=== PATIENT | female | born 1965 | race Two or more races ===

== ENCOUNTER 2017-10-10 11:19 | Emergency (ER) | payer OTHER ==
[2017-10-10 11:22] VITALS: BP 140/79; PULSE 81; TEMP 97; BMI 26.5
--- NOTE | 2017-10-10 12:20 | PDOC ---
History of Present Illness - General Chief Complaint: Pain Stated Complaint: FINGER INJURY Time Seen by Provider: 10/10/17 12:11 History Source: Patient, Stone Splitter Used (#[id number]) Exam Limitations: Clinical Condition - History of Present Illness Initial Comments: 10/10/17 12:23 Patient with history of diabetes on metformin present with complain of right thumb pain status post cleaning a bath tub 2 weeks ago pushing down right thumb. Patient reports she did not take anything for pain Timing/Duration: other (2 weeks) Past History - Past Medical History Allergies/Adverse Reactions: Allergies Allergy/AdvReac Type Severity Reaction Status Date / Time No Known Allergies Allergy Verified 10/10/17 11:23 Home Medications: Ambulatory Orders Ibuprofen 800 mg PO Q8H PRN #20 tablet 10/10/17 COPD: No Diabetes: Yes - Suicide/Smoking/Psychosocial Hx Smoking History: Never smoked Review of Systems - Review of Systems Able to Perform ROS?: Yes Is the patient limited Frisian proficient: No Constitutional: No: Chills, Diaphoresis, Fever, Loss of Appetite, Malaise, Night Sweats, Weakness, Weight Stable, Unintentional Wgt. Loss, Unexplained wgt Loss, Other HEENTM: No: Eye Pain, Blurred Vision, Tearing, Recent change in vision, Double Vision, Cataracts, Ear Pain, Ocular Prothesis, Ear Discharge, Nose Pain, Nose Congestion, Tinnitus, Nose Bleeding, Hearing Loss, Throat Pain, Throat Swelling , Mouth Pain, Dental Problems, Difficulty Swallowing, Mouth Swelling, Other Respiratory: No: Cough, Orthopnea, Shortness of Breath, SOB with Exertion, SOB at Rest, Stridor, Wheezing, Productive cough, Hemoptysis, Other Cardiac (ROS): No: Chest Pain, Edema, Irregular Heart Rate, Lightheadedness, Palpitations, Syncope, Chest Tightness, Other ABD/GI: No: Abdominal Distended, Abd. Pain w/ defecation, Blood Streaked Bowels , Constipated, Diarrhea, Difficulty Swallowing, Nausea, Poor Appetite, Poor Fluid Intake, Rectal Bleeding, Vomiting, Indigestion, Abdominal cramping, Tarry Stools, Other Musculoskeletal: Yes: See HPI, Joint Pain (right thumb), Muscle Pain (right thumb). No: Muscle Weakness All Other Systems: Reviewed and Negative *Physical Exam - Vital Signs Last Vital Signs Temp Pulse Resp BP Pulse Ox 97 F L 81 18 140/79 100 10/10/17 11:20 10/10/17 11:20 10/10/17 11:20 10/10/17 11:20 10/10/17 11:20 - Physical Exam Comments: 10/10/17 12:25 GENERAL: Well developed, well nourished. Awake and alert. No acute distress. HEENT: Normocephalic, atraumatic. PERRLA, EOMI. No conjunctival pallor. Sclera are non- icteric. Moist mucous membranes. Oropharynx is clear. NECK: Supple. Full ROM. No JVD. Carotid pulses 2+ and symmetric, without bruits. No thyromegaly. No lymphadenopathy. CARDIOVASCULAR: Regular rate and rhythm. No murmurs, rubs, or gallops. Distal pulses are 2+ and symmetric. PULMONARY: No evidence of respiratory distress. Lungs clear to auscultation bilaterally. No wheezing, rales or rhonchi. ABDOMINAL: Soft. Non-tender. Non-distended. No rebound or guarding. No organomegaly. Normoactive bowel sounds. MUSCULOSKELETAL : Moderate tenderness to base of left thumb. Mild tenderness to proximal and distal phalangeal left thumb.5/5 muscle strength of left thumb and wrist Normal range of motion at all joints. No bony deformities or tenderness. No CVA tenderness. EXTREMITIES: No cyanosis. No clubbing. No edema. No calf tenderness. SKIN: Warm and dry. Normal capillary refill. No rashes. No jaundice. NEUROLOGICAL: Alert, awake, appropriate. Cranial nerves 2-12 intact. No deficits to light touch and temperature in face, upper extremities and lower extremities. No motor deficits in the in face, upper extremities and lower extremities. Normoreflexic in the upper and lower extremities. Normal speech. Toes are down- going bilaterally. Gait is normal without ataxia. PSYCHIATRIC: Cooperative. Good eye contact. Appropriate mood and affect. General Appearance: Yes: Nourished, Appropriately Dressed. No: Apparent Distress Medical Decision Making - Medical Decision Making 10/10/17 12:27 Patient with no significant past medical history present with complain of 2 weeks history of persistent right thumb pain status post housecleaning 2 weeks ago. Patient did not take anything for pain. Exams significant for moderate tenderness to base of left thumb with mild tenderness to falling just of left thumb. X-ray of hand and wrist ordered to rule out acute pathology. Symptoms likely thumb strain. Motrin 800 mg by mouth for pain. Treat based on imaging results 10/10/17 12:53 x-rays shows no acute fracture. patient stable for home discharge on NSAID and thumb brace with orthopedics follow-up *DC/Admit/Observation/Transfer Diagnosis at time of Disposition: Thumb sprain Qualifiers: Encounter type: initial encounter Sprain of finger site: metacarpophalangeal joint Laterality: right Qualified Code(s): S63.641A - Sprain of metacarpophalangeal joint of right thumb, initial encounter - Discharge Dispostion Disposition: HOME Condition at time of disposition: Stable Decision to Admit order: No - Prescriptions Prescriptions: Ibuprofen 800 mg PO Q8H PRN #20 tablet PRN Reason: thumb pain - Referrals Referrals: Edward Archuleta [Primary Care Provider] - Andres Lovell MD [Staff Physician] - - Patient Instructions Printed Discharge Instructions: Ulnar Collateral Ligament Sprain of Thumb Additional Instructions: Take medication as prescribed for pain. Keep thumb splints on until symptoms resolve. Follow up with preferred orthopedics if symptoms persist for more than 5 days - Post Discharge Activity
[2017-10-10] MEDS ORDERED: IBUPROFEN 400 MG TABLET (FP) PO ONE ×2 (12:28→12:32)
== END 2017-10-10 13:13 | disposition home or self-care (01) ==
LOC: JERFT 11:19
PROC: 2W3GX1Z Immobilization of Right Thumb using Splint (ICD-10-PCS; principal; 2017-10-10)
DX: S63.641A Sprain of metacarpophalangeal joint of right thumb, initial encounter (principal); X50.9XXA Other and unspecified overexertion or strenuous movements or postures, initial encounter; Y93.E9 Activity, other interior property and clothing maintenance; Y92.031 Bathroom in apartment as the place of occurrence of the external cause; Y99.8 Other external cause status
CPT/HCPCS: 73110-TC-RT-FY; 73130-TC-RT-FY; 99281-25

== ENCOUNTER 2021-10-22 19:55 | Inpatient (IN) | payer OTHER ==
[2021-10-22 20:04] VITALS: BMI 27.2
[2021-10-22 22:36] LABS: BASO % 0.9 % (0-2.0); EOS % 1.3 % (0-4.5); HEMATOCRIT 42.1 % (32.4-45.2); HEMOGLOBIN 14.4 GM/dL (10.7-15.3); LYMPH % 45.7 % (8-40); MCH 31.5 pg (25.7-33.7); MCHC 34.2 g/dl (32.0-36.0); MEAN PLT VOLUME 7.5 fl (7.5-11.1); MONO % 7.6 % (3.8-10.2); NEUT % 44.5 % (42.8-82.8); PLATELET COUNT 299 10^3/uL (134-434); RBC 4.58 M/mm3 (3.60-5.2); RDW 12.8 % (11.6-15.6); WHITE BLOOD COUNT 6.9 K/mm3 (4.0-10.0)
[2021-10-22 22:47] LABS: CALCIUM 9.3 mg/dL (8.5-10.1)
[2021-10-22 22:49] LABS: ALBUMIN 3.8 g/dl (3.4-5.0); BLOOD UREA NITROGEN 12.7 mg/dL (7-18)
[2021-10-22 22:51] LABS: CREATININE 0.8 mg/dL (0.55-1.3)
[2021-10-22 22:52] LABS: TOT PROT 8.8 g/dl (6.4-8.2)
[2021-10-22 22:54] LABS: BILIRUBIN,TOTAL 0.4 mg/dL (0.2-1)
[2021-10-23] MEDS ORDERED: CLINDAMYCIN 600MG PREMIX IVPB 600 MG/50 ML BAG IVPB ONE ×4 (02:05→17:47)
[2021-10-23 07:14] LABS: HEMATOCRIT 40.1 % (32.4-45.2); HEMOGLOBIN 14.2 GM/dL (10.7-15.3); MCH 32.4 pg (25.7-33.7); MCHC 35.4 g/dl (32.0-36.0); MEAN CELL VOLUME 91.6 fl (80-96); MEAN PLT VOLUME 7.6 fl (7.5-11.1); PLATELET COUNT 284 10^3/uL (134-434); RBC 4.38 M/mm3 (3.60-5.2); WHITE BLOOD COUNT 6.2 K/mm3 (4.0-10.0)
[2021-10-23 07:32] LABS: CALCIUM 9.3 mg/dL (8.5-10.1)
[2021-10-23 07:33] LABS: ALBUMIN 3.6 g/dl (3.4-5.0); BLOOD UREA NITROGEN 12.3 mg/dL (7-18)
[2021-10-23 07:36] LABS: CREATININE 0.7 mg/dL (0.55-1.3)
[2021-10-23 07:38] LABS: BILIRUBIN,TOTAL 0.5 mg/dL (0.2-1); TOT PROT 8.5 g/dl (6.4-8.2)
[2021-10-23] MEDS: INSULIN SLIDING SCALE (NOVOLOG) 1 VIAL SQ SCH ×4 (08:33→22:09)
[2021-10-23] MEDS ORDERED: MONTELUKAST NA 10 MG TABLET ONE (10:06)
[2021-10-23] MEDS: MONTELUKAST NA 10 MG TABLET PO SCH (10:11)
[2021-10-23] MEDS: CLINDAMYCIN 600MG PREMIX IVPB 600 MG/50 ML BAG IVPB SCH ×2 (10:11→18:08)
[2021-10-23] MEDS: INSULIN (LEVEMIR) 100 UNITS/ML UNITS SQ SCH ×2 (10:15→22:09)
[2021-10-23] MEDS ORDERED: ACETAMINOPHEN 1000 MG/100 ML BAG IVPB ONE (20:50)
[2021-10-23] MEDS ORDERED: ACETAMINOPHEN INJECTION 100 ML IVPB ONE (21:13)
[2021-10-23] MEDS ORDERED: ATORVASTATIN CA 20 MG TABLET (FP) PO SCH (22:00)
[2021-10-23] MEDS ORDERED: ATORVASTATIN CA 20 MG TABLET (FP) ONE (22:04)
[2021-10-24] MEDS ORDERED: CLINDAMYCIN 600MG PREMIX IVPB 600 MG/50 ML BAG IVPB ONE ×2 (03:23→11:47)
[2021-10-24] MEDS: CLINDAMYCIN 600MG PREMIX IVPB 600 MG/50 ML BAG IVPB SCH (03:28)
[2021-10-24] MEDS: INSULIN SLIDING SCALE (NOVOLOG) 1 VIAL SQ SCH ×4 (08:01→21:43)
[2021-10-24] MEDS ORDERED: ONDANSETRON 4 MG/2 ML VIAL IVPUSH PRN ×3 (10:15→14:12)
[2021-10-24] MEDS ORDERED: MIDAZOLAM HCL 2 MG/2 ML SINGLE DOSE VIAL ONE (10:29)
[2021-10-24] MEDS ORDERED: BUPIVACAINE HCL/PF 0.25% (2.5MG/ML) 10 ML VIAL ONE (10:39)
[2021-10-24] MEDS ORDERED: BUPIVACAINE HCL/PF 0.25% (2.5MG/ML) 10 ML VIAL IJ ONE ×2 (10:44)
[2021-10-24] MEDS ORDERED: BUPIVACAINE HCL/PF 0.5% (5MG/ML) 10 ML VIAL IJ ONE (10:44)
[2021-10-24] MEDS ORDERED: CLINDAMYCIN 600 MG PREMIX BAG IVPB ONE (11:49)
[2021-10-24] MEDS ORDERED: SODIUM CHLORIDE 1,000 ML IV SCH (12:30)
[2021-10-24] MEDS ORDERED: ACETAMINOPHEN 500 MG TABLET (FP) PO SCH (14:00)
[2021-10-24] MEDS: ATORVASTATIN CA 20 MG TABLET (FP) PO SCH (21:40)
[2021-10-24] MEDS: INSULIN (LEVEMIR) 100 UNITS/ML UNITS SQ SCH (21:42)
[2021-10-24] MEDS: ACETAMINOPHEN 1000 MG/100 ML BAG IVPB PRN (21:44)
[2021-10-25] MEDS: CLINDAMYCIN 600MG PREMIX IVPB 600 MG/50 ML BAG IVPB SCH ×4 (01:19→17:58)
[2021-10-25] MEDS: INSULIN SLIDING SCALE (NOVOLOG) 1 VIAL SQ SCH ×4 (06:16→21:52)
[2021-10-25] MEDS: INSULIN (LEVEMIR) 100 UNITS/ML UNITS SQ SCH ×3 (06:16→21:52)
[2021-10-25] MEDS: MONTELUKAST NA 10 MG TABLET PO SCH ×2 (07:40→10:20)
[2021-10-25 09:05] LABS: BASO % 0.4 % (0-2.0); EOS % 2.1 % (0-4.5); HEMATOCRIT 37.4 % (32.4-45.2); HEMOGLOBIN 13.1 GM/dL (10.7-15.3); LYMPH % 33.9 % (8-40); MCHC 35.1 g/dl (32.0-36.0); MEAN CELL VOLUME 91.2 fl (80-96); MEAN PLT VOLUME 7.6 fl (7.5-11.1); MONO % 7.4 % (3.8-10.2); NEUT % 56.2 % (42.8-82.8); PLATELET COUNT 274 10^3/uL (134-434); RDW 12.9 % (11.6-15.6); WHITE BLOOD COUNT 5.8 K/mm3 (4.0-10.0)
[2021-10-25 09:27] LABS: CALCIUM 8.6 mg/dL (8.5-10.1)
[2021-10-25 09:28] LABS: BLOOD UREA NITROGEN 11.9 mg/dL (7-18)
[2021-10-25 09:31] LABS: CREATININE 0.5 mg/dL (0.55-1.3)
[2021-10-25] MEDS: KETOROLAC TROMETHAMINE 30 MG/1 ML VIAL IVPUSH SCH ×2 (10:20→17:59)
[2021-10-25] MEDS: oxyCODONE HCL 5 MG TABLET PO PRN (11:41)
[2021-10-25] MEDS: ACETAMINOPHEN 1000 MG/100 ML BAG IVPB PRN (15:38)
[2021-10-25] MEDS ORDERED: INSULIN (NOVOLOG) ASPART 100 UNITS/ML 10ML VIAL ONE (21:25)
[2021-10-25] MEDS: ATORVASTATIN CA 20 MG TABLET (FP) PO SCH (21:52)
[2021-10-26] MEDS: CLINDAMYCIN 600MG PREMIX IVPB 600 MG/50 ML BAG IVPB SCH ×2 (02:00→11:37)
[2021-10-26] MEDS: oxyCODONE HCL 5 MG TABLET PO PRN (06:48)
[2021-10-26] MEDS: INSULIN (LEVEMIR) 100 UNITS/ML UNITS SQ SCH (06:49)
[2021-10-26] MEDS: INSULIN SLIDING SCALE (NOVOLOG) 1 VIAL SQ SCH ×2 (06:50→11:38)
[2021-10-26 09:30] VITALS: RESP 18
[2021-10-26] MEDS: MONTELUKAST NA 10 MG TABLET PO SCH (11:36)
[2021-10-26 15:59] VITALS: BP 121/77; PULSE 91
[2021-10-26 16:01] VITALS: TEMP 98.9
== END 2021-10-26 17:02 | disposition home or self-care (01) | DRG 721 ==
LOC: JERFT 19:55 → JERBED 10-23 04:16 → J8W 10-24 12:57
PROVIDERS: ADMIT Internal Medicine; ATTEND Nurse Practitioner Acute Care
PROC: 0J9800Z Drainage of Abdomen Subcutaneous Tissue and Fascia with Drainage Device, Open Approach (ICD-10-PCS; 2021-10-24)
PROC: 0JB80ZZ Excision of Abdomen Subcutaneous Tissue and Fascia, Open Approach (ICD-10-PCS; principal; 2021-10-24 10:44)
DX: T81.43XA Infection following a procedure, organ and space surgical site, initial encounter (principal); L02.216 Cutaneous abscess of umbilicus; I10 Essential (primary) hypertension; E11.9 Type 2 diabetes mellitus without complications; E78.5 Hyperlipidemia, unspecified; Y83.9 Surgical procedure, unspecified as the cause of abnormal reaction of the patient, or of later complication, without mention of misadventure at the time of the procedure
CPT/HCPCS: 36415; 74177-TC; 80048; 80053; 82962; 83605; 84703; 85025; 85027; 87040; 87070; 87186; 87205; 88304-TC; 94760; 99285-25; C9803-CS; Q9967; U0003; U0005